=== PATIENT | male | born 1965 | race Caucasian/White ===

== ENCOUNTER 2020-04-20 13:13 | Day surgery (SDC) | payer BC ==
[~2020-04-20] VITALS: Ht 175.3 cm; Wt 89.0 kg
[2020-04-20] MEDS ORDERED: AIMOVIG AU70 MG/1 ML SQ (14:22)
[2020-04-20 14:56] VITALS: BP 150/80; PULSE 67; TEMP 99.1
[2020-04-20] MEDS ORDERED: ZYLOPRIM 300MG300 MG PO (15:03)
[2020-04-20] MEDS ORDERED: SINEQUAN 1010 MG/CAP PO (15:04)
[2020-04-20] MEDS ORDERED: LEVOXYL0.175 MG PO (15:06)
[2020-04-20] MEDS ORDERED: COZAAR100 MG PO (15:07)
[2020-04-20] MEDS ORDERED: PROTONIX 40MG T40 MG PO (15:08)
[2020-04-20] MEDS ORDERED: INDERAL80 MG PO (15:09)
[2020-04-20] MEDS ORDERED: ZOCOR 10MG10 MG PO (15:10)
[2020-04-20] MEDS ORDERED: SEROQUEL400 MG PO (15:10)
[2020-04-20] MEDS ORDERED: SINGULAIR 110 MG/TAB PO (15:11)
[2020-04-20] MEDS ORDERED: AZULFIDINE500 MG/TAB PO (15:13)
[2020-04-20] MEDS ORDERED: FLOMAX 0.40.4 MG/CAP PO (15:14)
[2020-04-20 16:40] VITALS: BP 140/79; PULSE 79; TEMP 97.8
--- NOTE | 2020-04-20 16:40 | NUR ---
The patient arrived back to [facility] from the recovery room at this time. The patient appears alert and oriented and denies any pain or nausea at this time. The patient does report the need void and was escorted to the bathroom with the stand by assistance of two nurses after his first set of vital signs. The patient voided without difficulty. The patient agrees to try some apple juice and a muffin at this time. Will continue to monitor the patient.
[2020-04-20 16:54] VITALS: BP 164/90; PULSE 85
--- NOTE | 2020-04-20 16:55 | NUR ---
The patient appeared to tolerate the food and drink well. The patient voices a desire to be discharged home.
--- NOTE | 2020-04-20 17:06 | NUR ---
The patient has finished his food and drink and voices a desire to discharged home. Discharge instructions were reviewed with the patient at this time. He verbalized understanding and has no questions for the nurse at this time. The patient's IV to his right hand was removed and a pressure dressing was applied to the site. The nurse instructed the patient to get dressed and notiyf the staff when he is ready to be escorted out.
[2020-04-20 17:11] VITALS: BP 149/88; PULSE 84
--- NOTE | 2020-04-20 17:20 | NUR ---
The patient was escorted out via wheelchair to a private vehicle by JOY Bernstein. The patient's belongings and discharge paperwork were sent with him. The patient's family is present to drive him home.
== END 2020-04-20 17:20 | disposition home or self-care (01) ==
LOC: SDCO 13:13
DX: N20.1 Calculus of ureter (principal); I10 Essential (primary) hypertension; G43.909 Migraine, unspecified, not intractable, without status migrainosus; Z79.52 Long term (current) use of systemic steroids; Z88.3 Allergy status to other anti-infective agents
CPT/HCPCS: C1769; J0360; J0690; J1100; J1885; J2250; J2405; J2704; J3010; J7120; Q9967